=== PATIENT | female | born 1935 | race Caucasian/White ===

== ENCOUNTER 2017-09-11 06:51 | Emergency (ER) | payer OTHER ==
[~2017-09-11] VITALS: Ht 167.6 cm; Wt 42.2 kg
[2017-09-11] MEDS ORDERED: ZOLOFT100 MG (07:18)
[2017-09-11] MEDS ORDERED: SEROQUEL25 MG (07:19)
[2017-09-11] MEDS ORDERED: RANITIDINE HCL150 M1 (07:19)
== END 2017-09-11 18:05 | disposition left against medical advice (07) ==
LOC: ER 06:51
DX: K22.10 Ulcer of esophagus without bleeding (principal); K22.8 Other specified diseases of esophagus; L02.11 Cutaneous abscess of neck; L76.82 Other postprocedural complications of skin and subcutaneous tissue; T81.4XXA Infection following a procedure, initial encounter; Y83.8 Other surgical procedures as the cause of abnormal reaction of the patient, or of later complication, without mention of misadventure at the time of the procedure; Y92.89 Other specified places as the place of occurrence of the external cause